=== PATIENT | female | born 1990 | race Caucasian/White ===

== ENCOUNTER 2024-04-06 08:36 | Emergency (ER) | payer SELFPAY ==
[~2024-04-06] VITALS: Ht 175.2 cm; Wt 80.0 kg
[~2024-04-06 08:36] MED LIST: BACTRIM DS 8001 TA1 PO; NKHM
[2024-04-06] MEDS ORDERED: IOHEXOL 300 MG/ML 100 ML VIAL IV ONE (09:10)
[2024-04-06 09:23] LABS: BASO % 0.3 % (0.0-1.0); HEMATOCRIT 40.9 % (37.0-47.0); LYMPH # 1.2 10*3/uL (1.3-4.4); LYMPH % 10.8 % (27.0-41.0); MEAN CELL VOLUME 85.2 fl (81.0-99.0); MEAN CORPUSCULAR HGB 29.4 pg (27.0-31.0); MEAN CORPUSCULAR HGB CONC 34.5 g/dl (33.0-37.0); MEAN PLATELET VOLUME 9.1 fl (9.6-12.3); MONO # 1.3 10*3/uL (0.1-1.0); MONO % 11.5 % (3.0-9.0); NEUT # 8.4 10*3/uL (2.3-7.9); PLATELET COUNT AUTOMATED 180 10*3/uL (130-400); RED CELL DISTRI WIDTH 11.9 % (0-14.5); WHITE BLOOD COUNT 10.9 10*3/uL (4.8-10.8)
[2024-04-06 09:29] LABS: BILIRUBIN Negative (Negative); BLOOD Trace-Intact (Negative); CLARITY Cloudy (Clear); COLOR Yellow (Yellow); GLUCOSE Negative (Negative); KETONE 1+ (Negative); LEUKO ESTERASE 3+ (Negative); NITRITE Negative (Negative); SPECIFIC GRAVITY 1.015 (1.001-1.030)
[2024-04-06 09:47] LABS: ALKALINE PHOSPHATASE 101 U/L (46-116); BUN 10 mg/dl (9-23); CHLORIDE 98 mmol/L (98-107); LIPASE 29 U/L (12-53); POTASSIUM 2.9 mmol/L (3.4-5.1); SGPT/ALT 38 U/L (5-49); TOTAL PROTEIN 6.7 gm/dL (6.0-8.0)
[2024-04-06] MEDS ORDERED: POTASSIUM CHLORIDE 20 MEQ TAB PO ONE (10:25)
[2024-04-06] MEDS ORDERED: Potassium Bicarbonate/Potass 25 MEQ TAB PO ONE (10:25)
[2024-04-06 10:32] LABS: BACTERIA 3+; EPITHELIAL CELLS 21-30; WBC TNTC wbc/hpf (0-5)
[2024-04-06] MEDS ORDERED: OMEPRAZOLE40 MG PO (10:55)
[2024-04-06] MEDS ORDERED: CEPHALEXIN500 M1 PO (10:55)
== END 2024-04-06 11:04 | disposition home or self-care (01) ==
LOC: ED 08:36
PROVIDERS: Emergency Medicine
DX: N39.0 Urinary tract infection, site not specified (principal); K29.70 Gastritis, unspecified, without bleeding; E87.6 Hypokalemia